=== PATIENT | female | born 1970 | race Hispanic/Latino ===

== ENCOUNTER 2016-11-11 15:51 | Emergency (ER) | payer OTHER ==
[2016-11-11] MEDS ORDERED: SODIUM CHLORIDE 0.9% 1,000 ML ONE (18:37)
[2016-11-11] MEDS ORDERED: KETOROLAC 30 MG/ML VIAL ONE (20:28)
== END 2016-11-11 20:37 | disposition home or self-care (01) ==
LOC: ER 15:51
CPT/HCPCS: 36415; 74022; 74176; 80053; 81001; 85025; 87088; 87491; 87591; 87800; 96361; 96374